=== PATIENT | male | born 1975 | race Two or more races ===

== ENCOUNTER 2018-06-03 15:07 | Emergency (ER) | payer MEDICAID ==
[~2018-06-03] VITALS: Ht 152.4 cm; Wt 72.6 kg
[2018-06-03] MEDS ORDERED: UNOBMED (15:23)
[2018-06-03 16:00] VITALS: BP 110/78
[2018-06-03] MEDS ORDERED: Ketorolac 60mg Inj IM ONE (16:00)
[2018-06-03] MEDS ORDERED: IBUPROFEN600 MG ORAL (16:04)
[2018-06-03] MEDS ORDERED: OMEPRAZOLE20 M2 ORAL (16:04)
[2018-06-03 16:22] VITALS: BP 110/78
--- NOTE | 2018-06-03 21:07 | Emergency Room Report ---
History of Present Illness General Chief Complaint: Headache Source: Patient Present Illness [facility] The patient is a 42-year-old male presenting for sore throat and hoarse voice for the past 2 days. He is also complaining of headache. Denies any known sick contacts or recent travel. Pain is a 10 out of 10 dull ache to the throat. Worse with talking. He denies any fever, chills, weight loss, hemoptysis, cough, dysphagia, or any other symptoms Allergies: Coded Allergies: No Known Allergies (Unverified , 06/03/18) Patient History Past Medical History: see triage record Pertinent Family History: none Reviewed Nursing Documentation: PMH: Agreed; PSxH: Agreed Nursing Documentation-PMH Past Medical History: No History, Except For Hx Diabetes: Yes Review of Systems All Other Systems: negative except mentioned in HPI Physical Exam Vital Signs Date Time Temp Pulse Resp B/P (MAP) Pulse Ox O2 Delivery O2 Flow Rate FiO2 06/03/18 15:19 98.4 79 14 112/75 97 Room Air 98.4 Sp02 EP Interpretation: reviewed, normal General Appearance: no apparent distress, alert, GCS 15, non-toxic Head: normocephalic, atraumatic ENT: hearing grossly normal, no angioedema, normal voice, uvula midline, pharyngeal erythema Neck: full range of motion, supple/symm/no masses Respiratory: chest non-tender, lungs clear, normal breath sounds, speaking full sentences Musculoskeletal: back normal, gait/station normal, normal range of motion, non- tender Neurologic: alert, oriented x3, responsive, motor strength/tone normal, sensory intact, speech normal Psychiatric: judgement/insight normal, memory normal, mood/affect normal, no suicidal/homicidal ideation Medical Decision Making PA Attestation Dr. Horner is my supervising physician. Patient management was discussed with my supervising physician Diagnostic Impression: Primary Impression: Hoarseness of voice ER Course The patient is a 42-year-old male presenting for sore throat and hoarse voice for the past 2 days Differential diagnosis include but not limited to laryngitis, GERD, pharyngitis , laryngeal mass, among others Physical exam: Vitals within normal limits. Afebrile. No apparent distress HEENT exam: There is bilateral tonsillar erythema. Uvula midline. Moist mucous membranes. Hoarse voice Lungs are clear to auscultation bilaterally Skin is warm and dry. No rash Abd soft and non tender The patient will be discharged home with a prescription for omeprazole and motrin. He was told he needs to see his PMD as soon as possible. ER precautions given Last Vital Signs Date Time Temp Pulse Resp B/P (MAP) Pulse Ox O2 Delivery O2 Flow Rate FiO2 06/03/18 16:22 98.4 89 15 110/78 97 Room Air 209.1 Status: improved Disposition: HOME, SELF-CARE Condition: Improved Scripts Omeprazole (OMEPRAZOLE) 20 Mg Capsule. 20 MG ORAL DAILY, #30 CAP Prov: DUSTIN RYAN 06/03/18 Ibuprofen* (MOTRIN*) 600 Mg Tablet 600 MG ORAL Q8H PRN for For Pain, #30 TAB 0 Refills Prov: DUSTIN RYAN 06/03/18 Additional Instructions: I discussed my findings with the patient. All questions and concerns have been answered. Treatment and medication compliance have been addressed. I advised the patient that they need to follow up with PMD in 3-5 days. Return to ED if symptoms worsen, new symptoms arise, or if needed for any reason. Patient verbalized understanding of discharge instructions. Please see your primary doctor as soon as possible for further testing. DUSTIN RYAN Jun 03, 2018 21:07
== END 2018-06-03 16:22 | disposition home or self-care (01) ==
LOC: EMR 15:52
DX: R49.0 Dysphonia (principal); R51 Headache; E11.9 Type 2 diabetes mellitus without complications
CPT/HCPCS: 99283